=== PATIENT | male | born 1980 | race Two or more races ===

== ENCOUNTER 2021-12-31 09:34 | Emergency (ER) | payer OTHER ==
[~2021-12-31] VITALS: Ht 190.5 cm; Wt 92.0 kg
[2021-12-31] MEDS ORDERED: SODIUM CHLORIDE 0.9% 1,000 ML IV ONE (10:15)
[2021-12-31] MEDS ORDERED: KETOROLAC TROMETH 30 MG/ML 1ML VIAL IV ONE (10:15)
[2021-12-31 11:23] LABS: Basophils # (auto) 0.2 10 ^3/uL (0-0.2); Eosinophils # (auto) 0 10 ^3/uL (0-0.8); Hematocrit 32.5 % (41.0-53.0); Monocytes # (auto) 1.1 10 ^3/uL (0-1.3); Monocytes % (auto) 6.4 % (0.0-12.0); Neutrophils # (auto) 14.4 10 ^3/uL (1.6-8.6)
[2021-12-31 11:24] LABS: Basophils % (auto) 0.9 % (0.0-2.0); Hemoglobin 10.4 g/dL (13.5-17.5); Lymphocytes % (auto) 11.3 % (10.0-50.0); Mean Corpuscular Hgb Conc. 31.9 g/dL (32.0-36.0); Mean Corpuscular Volume 87.7 fL (80.0-100.0); Neutrophils % (auto) 81.4 % (37.0-80.0); Nucleated Red Blood Cells % 0.2 %; Red Cell Distribution Width 15.9 % (11.8-14.3); White Blood Cell 17.7 10^3/uL (4.4-10.8)
[2021-12-31 11:34] LABS: Albumin 3.6 g/dL (3.4-5.0); Calcium 9.3 mg/dL (8.5-10.1); Magnesium 2.3 mg/dL (1.6-2.6)
[2021-12-31 11:38] LABS: BUN/Creatinine Ratio 18.1; Bilirubin, Total 0.5 mg/dL (0.2-1.0); Total Protein 7.9 g/dL (6.4-8.2)
[2021-12-31] MEDS ORDERED: IOHEXOL 300 MG/ML 100ML BOTTLE IJ ONE (14:52)
[2021-12-31] MEDS ORDERED: CYCL-837 PO (17:01)
[2021-12-31] MEDS ORDERED: CEFD300C2 PO (17:01)
[2021-12-31] MEDS ORDERED: HYDR-4902 PO (17:01)
[2021-12-31 17:16] VITALS: BP 125/77
== END 2021-12-31 17:31 | disposition home or self-care (01) ==
LOC: ER 09:34 → EDBD 09:34 → ER 17:31
DX: S22.41XD Multiple fractures of ribs, right side, subsequent encounter for fracture with routine healing (principal); S42.91XD Fracture of right shoulder girdle, part unspecified, subsequent encounter for fracture with routine healing; S27.321D Contusion of lung, unilateral, subsequent encounter; F17.210 Nicotine dependence, cigarettes, uncomplicated; V89.2XXD Person injured in unspecified motor-vehicle accident, traffic, subsequent encounter
CPT/HCPCS: 36415; 71045; 71260; 73030; 80053; 83735; 85025; 93005; 96361; 96374; 99285; J1885; J7030; Q9967

== ENCOUNTER 2024-12-26 18:17 | Emergency (ER) | payer MEDICAID, OTHER ==
[~2024-12-26] VITALS: Ht 188 cm; Wt 75.0 kg
[~2024-12-26 18:17] MED LIST: CEFD300C2 PO; CYCL-837 PO; HYDR-4902 PO
[2024-12-26 18:21] VITALS: BP 147/103; PULSE 86; RESP 16; TEMP 98.6; O2SAT 96
[2024-12-26 19:02] LABS: Hematocrit 45.6 % (41.0-53.0); Hemoglobin 15.4 g/dL (13.5-17.5); Mean Corpuscular Hemoglobin 28.7 pg (28.0-32.0); Mean Corpuscular Volume 85.2 fL (80.0-100.0); Nucleated Red Blood Cells % 0.1 %
[2024-12-26 19:08] LABS: Alanine Aminotransferase 23 U/L (7-40); Albumin 4.5 g/dL (3.2-4.8); Alkaline Phosphatase 89 U/L (46-116); Anion Gap 8 (5-15); BUN/Creatinine Ratio 10.8 (10.0-20.0); Bilirubin, Total 0.4 mg/dL (0.2-1.0); Blood Urea Nitrogen 14 mg/dL (9-23); Calcium 10.0 mg/dL (8.7-10.4); Carbon Dioxide 27 mmol/L (20-31); Chloride 104 mmol/L (98-107); Lipase 32 U/L (12-53); Potassium 3.9 mmol/L (3.5-5.1); Sodium 139 mmol/L (136-145); Total Protein 7.3 g/dL (5.7-8.2)
[2024-12-26 19:17] LABS: Glucose 108 mg/dL (74-106)
[2024-12-26] MEDS: SODIUM CHLORIDE 0.9% 1,000 ML IV ONE (19:20)
[2024-12-26] MEDS: ONDANSETRON HCL 4 MG/2 ML VIAL IV ONE (19:24)
--- NOTE | 2024-12-26 19:53 | DVH ---
COMPUTERIZED TOMOGRAPHY ABDOMEN AND PELVIS WITHOUT CONTRAST REASON FOR EXAM: LOWER ABD PAIN N/V COMPARISON: None TECHNIQUE: Spiral scans were acquired from the diaphragm to the symphysis pubis without intravenous c ontrast administration. 2-D coronal and sagittal reformatted images were provided. Radiation optimiza tion: All CT scans at this facility use at least one of these dose optimization techniques: Automated exposure control mA and/or kV adjustment per patient size (includes targeted exams where dose is mat ched to clinical indication) or iterative reconstruction. RADIATION DOSE: CTDI: 7.84 mGy DLP: 444.46 mGy-cm FINDINGS: The visualized lung bases are grossly clear. There is no pleural effusion. There is no pericardial e ffusion. The spleen is not enlarged. The liver is normal in size and contour. Evaluation of the abdominal org ans is suboptimal in the absence of intravenous contrast. No calcified gallstone is identified. Unenh anced appearance of the pancreas is grossly unremarkable. The adrenal glands are normal. The kidneys are similar in size. There is no hydronephrosis of either kidney. There is no renal, ureteral, or bl adder calculus. The urinary bladder is decompressed no free fluid is identified in the abdomen or pe lvis. There is no pathologic lymphadenopathy by size criteria. The colonic stool burden is small. Th e appendix is normal. There is no pathologic distention of the small bowel. The prostate and seminal vesicles are within normal limits. No acute osseous abnormality is identified. IMPRESSION: No acute finding in the abdomen or pelvis to explain the patient's abdominal pain. Normal appendix. No evidence of bowel obstruction. No renal, ureteral, or bladder calculus is identified. No hydronephrosis of either kidney.
== END 2024-12-27 23:00 | disposition left against medical advice (07) ==
LOC: ER 18:20
DX: R11.2 Nausea with vomiting, unspecified (principal); Z79.899 Other long term (current) drug therapy
CPT/HCPCS: 36415; 74176; 80053; 83605; 83690; 85025; 96361; 96374; 99281; J2405; J7030